=== PATIENT | male | born 1960 | race Caucasian/White ===

== ENCOUNTER 2017-08-04 11:13 | Inpatient (IN) | payer BC, OTHER ==
[~2017-08-04] VITALS: Ht 175.3 cm; Wt 72.6 kg
[2017-08-04] MEDS ORDERED: MAG HYDROX/AL HYDROX/SIMETH 30 ML LIQUID UDC PO PRN (11:30)
[2017-08-04] MEDS ORDERED: ONDANSETRON 4 MG/2 ML VIAL IM PRN (11:30)
[2017-08-04] MEDS ORDERED: LORAZEPAM 2 MG/1 ML VIAL IM PRN (11:30)
[2017-08-04] MEDS ORDERED: LOPERAMIDE HCL 2 MG CAPSULE PO PRN ×2 (11:30)
[2017-08-04] MEDS ORDERED: MAGNESIUM HYDROXIDE 30 ML LIQUID UDC PO PRN (11:30)
[2017-08-04] MEDS ORDERED: MIRALAX 17 GM POWD.PACK PO PRN (11:30)
[2017-08-04] MEDS ORDERED: THIAMINE HCL 200 MG/2 ML VIAL IM ONE (11:30)
[2017-08-04] MEDS ORDERED: ONDANSETRON ODT 4 MG TAB.RAPDIS SL PRN (11:30)
[2017-08-04] MEDS ORDERED: diphenhydrAMINE 50 MG CAPSULE PO PRN (11:30)
[2017-08-04] MEDS ORDERED: BUPRENORPHINE HCL 2 MG TAB.SUBL SL PRN (12:30)
[2017-08-04] MEDS: THIAMINE HCL 100 MG TABLET PO SCH (12:34)
[2017-08-04] MEDS: ACETAMINOPHEN 325 MG TABLET PO PRN ×2 (12:44→20:19)
[2017-08-04] MEDS: LORAZEPAM 1 MG TABLET PO PRN ×2 (12:45→17:20)
[2017-08-04 14:51] LABS: BASOPHILS # (AUTO) 0.1 K/uL (0.0-8.0); BASOPHILS % (AUTO) 0.9 % (0.0-2.0); EOSINOPHILS # (AUTO) 0.4 K/uL (0.0-0.7); EOSINOPHILS % (AUTO) 7.1 % (0.0-7.0); HEMATOCRIT 45.2 % (36.7-47.1); HEMOGLOBIN 15.9 g/dL (12.5-16.3); LYMPHOCYTES # (AUTO) 2.3 K/uL (20.0-40.0); MEAN CORPUSCULAR HEMOGLOBIN 34.3 uug (23.8-33.4); MEAN CORPUSCULAR HGB CONC 35 g/dL (32.5-36.3); MEAN CORPUSCULAR VOLUME 97.3 fL (73.0-96.2); MONOCYTES # (AUTO) 0.4 K/uL (2.0-10.0); MONOCYTES % (AUTO) 5.9 % (0.0-11.0); NEUTROPHILS # (AUTO) 2.8 K/uL (1.8-8.9); NEUTROPHILS % (AUTO) 47.1 % (38.5-71.5); PLATELET COUNT (AUTO) 165 K/uL (152-348); RED BLOOD CELL COUNT(AUTO) 4.65 MIL/uL (4.06-5.63)
[2017-08-04 15:19] LABS: BILIRUBIN,TOTAL 0.4 mg/dL (0.2-1.0); CREATININE 0.9 mg/dL (0.6-1.3); MAGNESIUM 1.8 mg/dL (1.8-2.4); POTASSIUM 4.2 mmol/L (3.5-5.1); TOTAL PROTEIN, SERUM 7.5 g/dL (6.4-8.2)
[2017-08-04 16:00] VITALS: BP 119/79
[2017-08-04 16:22] LABS: THYROID STIMULATING HORMONE 0.938 mIU/mL (0.358-3.740)
[2017-08-04] MEDS: HYDROXYZINE PAMOATE 25 MG CAPSULE PO PRN (17:04)
[2017-08-04] MEDS: CLONIDINE HCL 0.1 MG TABLET PO PRN ×2 (17:19→20:19)
[2017-08-04] MEDS: METHOCARBAMOL 750 MG TABLET PO PRN (17:20)
[2017-08-04 20:00] VITALS: BP 151/81
[2017-08-04 20:18] LABS: *AMPHETAMINE, URINE NEGATIVE (NEGATIVE); *BARBITURATE, URINE NEGATIVE (NEGATIVE); *CANNABINOID, URINE NEGATIVE (NEGATIVE); *COCCAINE, URINE NEGATIVE (NEGATIVE); *OPIATE, URINE POSITIVE (NEGATIVE); *PHENCYCLIDINE SCREEN,URINE NEGATIVE (NEGATIVE)
[2017-08-04] MEDS ORDERED: LORAZEPAM 1 MG TABLET PO SCH (21:00)
[2017-08-04 21:20] VITALS: BP 140/85
[2017-08-04] MEDS: DICYCLOMINE HCL 20 MG TABLET PO PRN (21:58)
[2017-08-05] VITALS: BP 135/89
[2017-08-05] MEDS: HYDROXYZINE PAMOATE 25 MG CAPSULE PO PRN
[2017-08-05] MEDS: LORAZEPAM 1 MG TABLET PO PRN (00:01)
[2017-08-05] MEDS: IBUPROFEN 600 MG TABLET PO PRN ×2 (00:01→08:13)
[2017-08-05 04:00] VITALS: BP 138/92
[2017-08-05 08:00] VITALS: BP 142/95
[2017-08-05] MEDS: FOLIC ACID 1 MG TABLET PO SCH (08:13)
[2017-08-05] MEDS: THIAMINE HCL 100 MG TABLET PO SCH (08:13)
[2017-08-05] MEDS: METHOCARBAMOL 750 MG TABLET PO PRN ×2 (08:13→18:27)
[2017-08-05] MEDS: LORAZEPAM 1 MG TABLET PO SCH ×4 (08:13→21:00)
[2017-08-05] MEDS: DICYCLOMINE HCL 20 MG TABLET PO PRN (08:13)
[2017-08-05] MEDS: MULTIVITAMINS,THERAPEUTIC TABLET PO SCH (08:13)
[2017-08-05] MEDS: AMLODIPINE 5 MG TABLET PO SCH (08:13)
[2017-08-05] MEDS ORDERED: TUBERCULIN,PURIF.PROT.DERIV. 5 TU/0.1 ML TEST ID ONE (09:00)
[2017-08-05] MEDS ORDERED: TRAZODONE 50 MG TABLET PO PRN (09:15)
[2017-08-05 12:00] VITALS: BP 123/68
[2017-08-05] MEDS: ACETAMINOPHEN 325 MG TABLET PO PRN (12:25)
[2017-08-05 13:16] LABS: HEPATITIS B SURFACE AG Negative (Negative)
[2017-08-05] MEDS: BUPRENORPHINE HCL 2 MG TAB.SUBL SL PRN ×2 (14:23→18:27)
[2017-08-05 16:00] VITALS: BP 149/73
[2017-08-05] MEDS: CLONIDINE HCL 0.1 MG TABLET PO PRN (17:01)
[2017-08-05 20:24] VITALS: BP 127/84
[2017-08-05] MEDS: GABAPENTIN 300 MG CAPSULE PO SCH (21:00)
[2017-08-06 00:32] VITALS: BP 119/71
[2017-08-06] MEDS: LORAZEPAM 1 MG TABLET PO PRN (03:47)
[2017-08-06 04:31] VITALS: BP 126/78
[2017-08-06 08:00] VITALS: BP 118/83
[2017-08-06] MEDS: FOLIC ACID 1 MG TABLET PO SCH (08:27)
[2017-08-06] MEDS: THIAMINE HCL 100 MG TABLET PO SCH (08:27)
[2017-08-06] MEDS: GABAPENTIN 300 MG CAPSULE PO SCH ×3 (08:28→20:22)
[2017-08-06] MEDS: MULTIVITAMINS,THERAPEUTIC TABLET PO SCH (08:28)
[2017-08-06] MEDS: METHOCARBAMOL 750 MG TABLET PO PRN ×2 (08:28→17:09)
[2017-08-06] MEDS: LORAZEPAM 1 MG TABLET PO SCH ×3 (08:28→20:22)
[2017-08-06] MEDS: AMLODIPINE 5 MG TABLET PO SCH (08:28)
[2017-08-06] MEDS: BUPRENORPHINE HCL 2 MG TAB.SUBL SL PRN (08:29)
[2017-08-06 12:00] VITALS: BP 129/81
[2017-08-06] MEDS: BUPRENORPHINE HCL 2 MG TAB.SUBL SL SCH ×2 (14:13→20:22)
[2017-08-06 16:00] VITALS: BP 143/82
[2017-08-06] MEDS: CLONIDINE HCL 0.1 MG TABLET PO PRN (17:10)
[2017-08-06] MEDS ORDERED: diphenhydrAMINE 50 MG CAPSULE PO PRN (18:30)
[2017-08-06 20:17] VITALS: BP 134/89
[2017-08-06] MEDS: BACLOFEN 10 MG TABLET PO SCH (20:20)
[2017-08-06] MEDS: CLONIDINE HCL 0.1 MG TABLET PO SCH (20:21)
[2017-08-07] VITALS: BP 124/82
[2017-08-07] MEDS: METHOCARBAMOL 750 MG TABLET PO PRN (02:37)
[2017-08-07] MEDS: LORAZEPAM 1 MG TABLET PO PRN ×6 (02:37→22:40)
[2017-08-07 04:02] VITALS: BP 131/86
[2017-08-07 08:00] VITALS: BP 108/69
[2017-08-07] MEDS: MULTIVITAMINS,THERAPEUTIC TABLET PO SCH (08:25)
[2017-08-07] MEDS: IBUPROFEN 600 MG TABLET PO PRN (08:25)
[2017-08-07] MEDS: CLONIDINE HCL 0.1 MG TABLET PO SCH ×2 (08:27→20:46)
[2017-08-07] MEDS: BACLOFEN 10 MG TABLET PO SCH ×2 (08:27→20:44)
[2017-08-07] MEDS: FOLIC ACID 1 MG TABLET PO SCH (08:27)
[2017-08-07] MEDS: GABAPENTIN 300 MG CAPSULE PO SCH ×2 (08:27→15:00)
[2017-08-07] MEDS: THIAMINE HCL 100 MG TABLET PO SCH (08:27)
[2017-08-07] MEDS: AMLODIPINE 5 MG TABLET PO SCH (08:28)
[2017-08-07] MEDS ORDERED: LORAZEPAM 1 MG TABLET PO SCH ×2 (09:00→21:00)
[2017-08-07] MEDS ORDERED: BUPRENORPHINE HCL 2 MG TAB.SUBL SL SCH (09:00)
[2017-08-07] MEDS ORDERED: LORAZEPAM 1 MG TABLET PO PRN (11:00)
[2017-08-07] MEDS ORDERED: OLANZAPINE 10 MG VIAL IM ONE ×2 (11:30→23:24)
[2017-08-07 12:00] VITALS: BP 146/89
[2017-08-07] MEDS: LORAZEPAM 1 MG TABLET PO SCH ×2 (12:17→17:00)
[2017-08-07] MEDS: CLONIDINE HCL 0.1 MG TABLET PO PRN (12:58)
[2017-08-07] MEDS: QUETIAPINE FUMARATE 25 MG TABLET PO PRN ×2 (12:59→20:46)
[2017-08-07] MEDS: BUPRENORPHINE HCL 2 MG TAB.SUBL SL SCH ×3 (15:00→20:51)
[2017-08-07 20:00] VITALS: BP 142/92
[2017-08-07] MEDS ORDERED: GABAPENTIN 300 MG CAPSULE PO SCH (21:00)
[2017-08-07] MEDS ORDERED: QUETIAPINE FUMARATE 25 MG TABLET PO ONE ×2 (22:30)
[2017-08-07] MEDS: OLANZAPINE 10 MG VIAL IM ONE ×2 (23:30→23:35)
[2017-08-08 00:30] VITALS: BP 134/93
[2017-08-08 04:00] VITALS: BP 120/69
[2017-08-08 08:00] VITALS: BP 123/86
[2017-08-08] MEDS: THIAMINE HCL 100 MG TABLET PO SCH (08:14)
[2017-08-08] MEDS: FOLIC ACID 1 MG TABLET PO SCH (08:14)
[2017-08-08] MEDS: GABAPENTIN 300 MG CAPSULE PO SCH ×3 (08:14→20:47)
[2017-08-08] MEDS: MULTIVITAMINS,THERAPEUTIC TABLET PO SCH (08:14)
[2017-08-08] MEDS: QUETIAPINE FUMARATE 25 MG TABLET PO PRN (08:14)
[2017-08-08] MEDS: BACLOFEN 10 MG TABLET PO SCH ×2 (08:14→20:47)
[2017-08-08] MEDS: AMLODIPINE 5 MG TABLET PO SCH (08:14)
[2017-08-08] MEDS: CLONIDINE HCL 0.1 MG TABLET PO SCH ×2 (08:15→20:47)
[2017-08-08] MEDS: BUPRENORPHINE HCL 2 MG TAB.SUBL SL SCH ×3 (08:19→20:48)
[2017-08-08] MEDS ORDERED: LORAZEPAM 1 MG TABLET PO SCH (09:00)
[2017-08-08 12:00] VITALS: BP 118/83
[2017-08-08] MEDS: LORAZEPAM 1 MG TABLET PO SCH ×3 (12:01→20:47)
[2017-08-08 16:00] VITALS: BP 108/69
[2017-08-08 20:00] VITALS: BP 115/78
[2017-08-09 08:00] VITALS: BP 154/78
[2017-08-09] MEDS: GABAPENTIN 300 MG CAPSULE PO SCH ×3 (08:39→20:52)
[2017-08-09] MEDS: MULTIVITAMINS,THERAPEUTIC TABLET PO SCH (08:39)
[2017-08-09] MEDS: FOLIC ACID 1 MG TABLET PO SCH (08:39)
[2017-08-09] MEDS: LORAZEPAM 1 MG TABLET PO SCH ×3 (08:39→20:52)
[2017-08-09] MEDS: AMLODIPINE 5 MG TABLET PO SCH (08:39)
[2017-08-09] MEDS: THIAMINE HCL 100 MG TABLET PO SCH (08:39)
[2017-08-09] MEDS: BACLOFEN 10 MG TABLET PO SCH ×2 (08:40→20:53)
[2017-08-09] MEDS: CLONIDINE HCL 0.1 MG TABLET PO SCH ×2 (08:40→20:53)
[2017-08-09] MEDS: BUPRENORPHINE HCL 2 MG TAB.SUBL SL SCH ×2 (08:40→20:54)
[2017-08-09] MEDS ORDERED: LORAZEPAM 1 MG TABLET PO SCH (09:00)
[2017-08-09] MEDS: LORAZEPAM 1 MG TABLET PO PRN (11:00)
[2017-08-09 12:00] VITALS: BP 114/74
[2017-08-09 16:00] VITALS: BP 121/88
[2017-08-09] MEDS ORDERED: DIPH50CA37 PO (17:40)
[2017-08-09] MEDS ORDERED: GABA-534 PO (17:40)
[2017-08-09] MEDS ORDERED: DICY20TA28 PO (17:40)
[2017-08-09] MEDS ORDERED: METH-406 PO (17:40)
[2017-08-09] MEDS ORDERED: CLON0.1T14 PO (17:40)
[2017-08-09] MEDS ORDERED: AMLO10TA2 PO (17:40)
[2017-08-09] MEDS ORDERED: HYDR-3895 PO (17:40)
[2017-08-09] MEDS ORDERED: IBUP-1955 PO (17:40)
[2017-08-09] MEDS ORDERED: QUET25TA PO (17:40)
[2017-08-09 20:00] VITALS: BP 125/83
[2017-08-09] MEDS ORDERED: AMLODIPINE 5 MG TABLET PO ONE (21:00)
[2017-08-10 08:00] VITALS: BP 132/89
[2017-08-10] MEDS: CLONIDINE HCL 0.1 MG TABLET PO SCH ×2 (09:00→21:09)
[2017-08-10] MEDS: GABAPENTIN 300 MG CAPSULE PO SCH ×3 (09:00→21:08)
[2017-08-10] MEDS ORDERED: LORAZEPAM 1 MG TABLET PO SCH (09:00)
[2017-08-10] MEDS: BACLOFEN 10 MG TABLET PO SCH ×2 (09:00→21:08)
[2017-08-10] MEDS: THIAMINE HCL 100 MG TABLET PO SCH (09:00)
[2017-08-10] MEDS ORDERED: BUPRENORPHINE HCL 2 MG TAB.SUBL SL SCH (09:00)
[2017-08-10] MEDS: MULTIVITAMINS,THERAPEUTIC TABLET PO SCH (09:00)
[2017-08-10] MEDS: AMLODIPINE 10 MG TABLET PO SCH (09:01)
[2017-08-10] MEDS: FOLIC ACID 1 MG TABLET PO SCH (09:01)
[2017-08-10 12:00] VITALS: BP 120/73
[2017-08-10 16:00] VITALS: BP 120/73
[2017-08-10 20:10] VITALS: BP 139/80
[2017-08-10] MEDS: QUETIAPINE FUMARATE 25 MG TABLET PO PRN (21:44)
[2017-08-11 00:31] VITALS: BP 130/80
[2017-08-11 04:08] VITALS: BP 129/84
[2017-08-11 08:00] VITALS: BP 132/81
[2017-08-11] MEDS: BACLOFEN 10 MG TABLET PO SCH (08:16)
[2017-08-11] MEDS: GABAPENTIN 300 MG CAPSULE PO SCH (08:16)
[2017-08-11] MEDS: MULTIVITAMINS,THERAPEUTIC TABLET PO SCH (08:17)
[2017-08-11] MEDS: FOLIC ACID 1 MG TABLET PO SCH (08:17)
[2017-08-11] MEDS: AMLODIPINE 10 MG TABLET PO SCH (08:17)
[2017-08-11 08:18] VITALS: BP 132/81
[2017-08-11] MEDS: THIAMINE HCL 100 MG TABLET PO SCH (08:18)
[2017-08-11] MEDS: CLONIDINE HCL 0.1 MG TABLET PO SCH (08:18)
== END 2017-08-11 09:30 | disposition other institution (70) | DRG 895 ==
LOC: SRC 11:13
PROVIDERS: ADMIT Internal Medicine; ATTEND Internal Medicine
PROC: HZ2ZZZZ Detoxification Services for Substance Abuse Treatment (ICD-10-PCS; principal; 2017-08-04)
PROC: HZ41ZZZ Group Counseling for Substance Abuse Treatment, Behavioral (ICD-10-PCS; 2017-08-05)
PROC: HZ31ZZZ Individual Counseling for Substance Abuse Treatment, Behavioral (ICD-10-PCS; 2017-08-06)
DX: F10.232 Alcohol dependence with withdrawal with perceptual disturbance (principal); F10.231 Alcohol dependence with withdrawal delirium; I15.9 Secondary hypertension, unspecified; F23 Brief psychotic disorder; F11.23 Opioid dependence with withdrawal; Y90.7 Blood alcohol level of 200-239 mg/100 ml; F41.9 Anxiety disorder, unspecified; G89.29 Other chronic pain; M54.5 Low back pain; Z81.1 Family history of alcohol abuse and dependence; Z91.89 Other specified personal risk factors, not elsewhere classified; Z91.5 Personal history of self-harm; F32.9 Major depressive disorder, single episode, unspecified; F13.10 Sedative, hypnotic or anxiolytic abuse, uncomplicated; R73.9 Hyperglycemia, unspecified
CPT/HCPCS: 36415; 70030-TC; 80307; 80346; 80361; 83735; 84443; 85025; 86580; 86592; 86705; 86803; 87340; 87806; G0480; J2358; Q0163